=== PATIENT | female | born 1965 | race Caucasian/White ===

== ENCOUNTER 2017-08-06 21:53 | Emergency (ER) | payer OTHER | END 2017-08-07 02:54 | disposition home or self-care (01) | LOC: ER 21:53 | DX: S92.505A Nondisplaced unspecified fracture of left lesser toe(s), initial encounter for closed fracture (principal); M79.1 Myalgia; V43.03XA Car driver injured in collision with pick-up truck in nontraffic accident, initial encounter; Y92.410 Unspecified street and highway as the place of occurrence of the external cause; M54.2 Cervicalgia; R51 Headache; F17.210 Nicotine dependence, cigarettes, uncomplicated; Z79.899 Other long term (current) drug therapy; Z79.84 Long term (current) use of oral hypoglycemic drugs; Z79.891 Long term (current) use of opiate analgesic | CPT/HCPCS: 70450; 72125; 73030; 73502; 73590; 73630; 96372; 99284-25 ==